=== PATIENT | male | born 1975 | race Caucasian/White ===

== ENCOUNTER → 2017-08-03 09:03 | Outpatient (CLI) | payer OTHER, SELFPAY ==
[2017-08-03 09:21] LABS: Add Manual Diff / Slide Review NO; Basophils Percent Auto 1.2 % (0-2); Eosinophils Percent Auto 3.7 % (2-4); Hematocrit 41.8 % (41-53); Lymphocytes Percent Auto 29.1 % (25-40); Mean Corpuscular HGB Conc 35.8 % (30-36); Mean Corpuscular Hemoglobin 30.4 PG (26-34); Mean Corpuscular Volume 84.9 fL (80-100); Monocytes Percent Auto 6.4 % (3-14); Neutrophils Absolute Auto 3900 /uL (3000-5900); Neutrophils Percent Auto 59.6 % (50-75); Red Blood Cell Count 4.92 X10^6/uL (4.5-5.9); White Blood Cell Count 6.6 X10^3/uL (4.5-11.0)
[2017-08-03 09:22] LABS: Platelet Count 1078 X10^3/uL (150-400)
[2017-08-03 09:33] LABS: Alanine Aminotransferase 29 IU/L (21-72); Albumin 4.6 g/dL (3.5-5.0); Albumin Globulin Ratio 1.6 (1.0-2.8); Alkaline Phosphatase 52 U/L (38-126); Aspartate Aminotransferase 26 IU/L (17-59); Bilirubin Total 0.8 mg/dL (0.2-1.3); Blood Urea Nitrogen 8 mg/dL (9-20); Calcium 9.4 mg/dL (8.4-10.2); Carbon Dioxide 31 mmol/L (22-32); Chloride 97 mmol/L (98-107); Estimated Glomerular Filt Rate > 60.0 mL/min (>60); Globulin 2.9 g/dL (1.7-4.1); Glucose 99 mg/dL (70-100); HEMOLYSIS 16 (0-50); Potassium 4.7 mmol/L (3.4-5.1); Sodium 138 mmol/L (137-145); Total Protein 7.5 g/dL (6.3-8.2)
[2017-08-03 09:39] LABS: Platelet Estimate Increased on smear
--- NOTE | 2017-08-03 09:43 | PC.NURSE ---
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
--- NOTE | 2017-08-03 11:05 | PC.NURSE ---
Critical value of plt 1078 noted. Showed Ketty results. She'd like pt seen sooner than August 11. Spoke with pt. He hasn't been taking his Hydrea for about a month. 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 He was made aware of critical value. His appt was changed to tomorrow 08/[address] Rome. Pt aware.
== END ==
PROVIDERS: Family Provider Nurse Practitioner Family; PCP Nurse Practitioner Family; Visit Provider Nurse Practitioner Gerontology
DX: D47.3 Essential (hemorrhagic) thrombocythemia (principal)
CPT/HCPCS: 36415; 80053; 85025

== ENCOUNTER → 2017-08-16 07:47 | Outpatient (CLI) | payer OTHER, SELFPAY ==
--- NOTE | 2017-08-16 | DI.US.S_ITS ---
PROCEDURE: US ABDOMEN LIMITED INDICATIONS: ESSENTIAL THROMBOCYTHEMIA TECHNIQUE: Real-time focused scanning was performed of the abdomen, with image documentation. COMPARISON: [facility], , ABDOMEN LIMITED, 01/14/2014, 11:02. FINDINGS: Spleen is enlarged measuring 15.4 cm in length with splenic volume 399 cc. Accessory spleen redemonstrated. IMPRESSION: 1. Splenomegaly redemonstrated decreased in size from prior examination with overall volume measuring 399 cc compared to 609 cc on prior exam Dictated by: Corwin Langford [facility] Interpreted: Duke Odonnell MD on 08/16/2017 at 9:06 Approved by: Duke Odonnell M.D. on 08/16/2017 at 11:06
[2017-08-16 08:56] LABS: Add Manual Diff / Slide Review NO; Basophils Percent Auto 0.7 % (0-2); Eosinophils Percent Auto 3.5 % (2-4); Hemoglobin 14.6 g/dL (13.5-17.5); Lymphocytes Percent Auto 25.9 % (25-40); Mean Corpuscular HGB Conc 34.8 % (30-36); Mean Corpuscular Hemoglobin 29.9 PG (26-34); Mean Corpuscular Volume 86.2 fL (80-100); Monocytes Percent Auto 6.6 % (3-14); Neutrophils Absolute Auto 4700 /uL (3000-5900); Neutrophils Percent Auto 63.3 % (50-75); Red Blood Cell Count 4.88 X10^6/uL (4.5-5.9); Red Cell Distribution Width 12.9 % (11.6-14.8); White Blood Cell Count 7.3 X10^3/uL (4.5-11.0)
[2017-08-16 09:22] LABS: Platelet Count 1059 X10^3/uL (150-400); RBC Morphology Normal Morphology
[2017-08-16 09:57] VITALS: PULSE 66; RESP 15; TEMP 37.1
== END ==
PROVIDERS: Nurse Practitioner Gerontology; Family Provider Nurse Practitioner Family; PCP Nurse Practitioner Family; Visit Provider Internal Medicine Hematology & Oncology
DX: D47.3 Essential (hemorrhagic) thrombocythemia (principal)
CPT/HCPCS: 36415; 76705; 85025

== ENCOUNTER → 2017-08-22 12:16 | Outpatient (CLI) | payer OTHER, SELFPAY ==
[2017-08-22 12:33] LABS: Add Manual Diff / Slide Review NO; Basophils Percent Auto 0.9 % (0-2); Eosinophils Percent Auto 2.4 % (2-4); Hematocrit 42.1 % (41-53); Hemoglobin 14.5 g/dL (13.5-17.5); Lymphocytes Percent Auto 25.4 % (25-40); Mean Corpuscular HGB Conc 34.4 % (30-36); Mean Corpuscular Hemoglobin 29.2 PG (26-34); Monocytes Percent Auto 7.3 % (3-14); Neutrophils Absolute Auto 5300 /uL (3000-5900); Red Blood Cell Count 4.95 X10^6/uL (4.5-5.9); Red Cell Distribution Width 12.8 % (11.6-14.8); White Blood Cell Count 8.2 X10^3/uL (4.5-11.0)
[2017-08-22 13:03] LABS: Platelet Count 903 X10^3/uL (150-400)
[2017-08-22 13:05] LABS: RBC Morphology Normal Morphology
--- NOTE | 2017-08-22 14:36 | PC.NURSE ---
Per Dr Rome's wishes, plt count was called into him. Platelets are [address] Rome requested lab results and pt chart to be put in his box for review/input tomorrow.
--- NOTE | 2017-08-24 16:50 | PC.NURSE ---
Anagrelide dosing increased to 3 tabs PO BID.1.5 mg and CBC in 1 week.Lab set up to be done at [facility].Triage will need to call for results on Tuesday to [facility] at [phone](lab not set up to auto fax).Pt notified -will do draw in am .New Rx faxed to [facility]
== END ==
PROVIDERS: Nurse Practitioner Gerontology; Family Provider Nurse Practitioner Family; PCP Nurse Practitioner Family; Visit Provider Internal Medicine Hematology & Oncology
DX: D47.3 Essential (hemorrhagic) thrombocythemia (principal)
CPT/HCPCS: 36415; 85025

== ENCOUNTER → 2017-08-29 08:30 | Oncology outpatient (ONC) | payer OTHER, SELFPAY ==
[2017-08-04 10:27] VITALS: BP 154/83; PULSE 61; RESP 15; TEMP 36.6; O2SAT 100
--- NOTE | 2017-08-04 10:56 | P.PNONC_ITS ---
Diagnosis (1) Essential thrombocythemia Diagnosis: 08/04/17 10:51 Long-standing history of essential thrombocythemia. Abnormal peripheral flow cytometry documented on 04/22/2006. Prior intermittent therapy with Hydrea. History of Present Illness History Of Present Illness: 08/04/17 10:52 Den returns today for follow-up. This gentleman was last seen in our clinic in early December,. At that time, he apparently interrupted his Hydrea therapy, to allow for conception of a 3rd child. Approximately 1 year ago, his gave to their 3rd son. They are now using routine control. Den acknowledges that he was previously on Hydrea, until approximately 1 month ago. He has not had is a platelet count procured in a very long time. He continues to have intermittent migraine headaches. He denies any dizziness or visual alteration. He denies any easy bruisability. He has recently completed 20 years in the [employer]. He has recently signed up for an additional 2 years of service. Home Medications and Allergies Home Medications Medication Instructions Recorded Confirmed Type hydroxyurea [Hydrea] 500 mg PO Q DAY #2 cap 10/08/16 Rx acetaminophen 325 mg PO Q4H PRN 08/04/17 08/04/17 History Allergies Allergy/AdvReac Type Severity Reaction Status Date / Time No Known Drug Allergies Allergy Verified 08/04/17 10:26 Exam Vital Signs: Vital Signs - 24 hr 08/04/17 10:27 Temperature 97.9 F Pulse Rate 61 Respiratory Rate 15 Blood Pressure 154/83 H Pulse Oximetry 100 Exam: Blood pressure 154/83. Temperature 97.9?. Pulse rate 61. O2 saturation on room air was 100%. Weight 192 lb. The oropharynx today was clear. No mucosal bleeding or petechiae were noted. There was no oozing from either nares. Both lungs were clear to auscultation and percussion. No pathologic lymphadenopathy was noted today in the neck, chin, supraclavicular or axillary areas. His heart sounds were fine. No perceived hepatosplenomegaly. No distal edema. No bruising was noted. Results - Labs A CBC from yesterday showed a white count of 6600 with 60% granulocytes. ANC 3900. Hemoglobin 15.0. MCV 85. Platelet count was 1,078,000. Impression I told Den today that he unequivocally needs to get back on an anti-platelet medication and that he also needs to keep his medical followups. He was warned about the potential for this disease to transform into acute leukemia, myelofibrosis or other more aggressive myeloproliferative disorders. My goal is to get his platelet count down to at least 400,000. He has some reservations about going back on Hydrea. I will therefore switch him over to Anagrelide 1 mg p.o. b.i.d.. I would like to recheck his CBC on August 16. We will also get a baseline splenic ultrasound that same day.
--- NOTE | 2017-08-16 10:08 | ONC.GEN.PN ---
Diagnosis (1) Essential thrombocythemia Diagnosis: 08/04/17 10:51 Long-standing history of essential thrombocythemia. Abnormal peripheral flow cytometry documented on 04/22/2006. Prior intermittent therapy with Hydrea. 08/16/17 10:08 Day #8 0f Anagrelide therapy History of Present Illness History Of Present Illness: 08/16/17 10:09 Den returns today for routine follow-up. He started his Anagrelide treatment last Tuesday. Thus far he has been tolerating the medication without difficulty. He had an ultrasound of his spleen earlier today. Those results are pending. He informs me today that he will be moving to [place] on September 05. Home Medications and Allergies Home Medications Medication Instructions Recorded Confirmed Type hydroxyurea [Hydrea] 500 mg PO Q DAY #2 cap 10/08/16 08/16/17 Rx acetaminophen 325 mg PO Q4H PRN 08/04/17 08/16/17 History Allergies Allergy/AdvReac Type Severity Reaction Status Date / Time No Known Drug Allergies Allergy Verified 08/04/17 10:26 Exam Exam: Blood pressure 134/89. Temperature 98.7?. Pulse rate 66. O2 saturation on room air was 99%. Weight 194 lb. No bleeding was seen today in either nares nor in the mouth. Both lungs were clear to auscultation and percussion. No petechiae were seen on his anterior shins. There was no dependent edema. No bruises were seen. Impression Den's platelet count remains quite elevated today at 1,059,000. I will therefore bump up his Anagrelide to 5 tablets daily; 3 in the morning and 2 in the evening. He will return on August 22 for a follow-up CBC
--- NOTE | 2017-08-30 15:10 | PC.NURSE ---
plt 876. Dr Rome would like pt to increase his Anagrelide to 4 tab in am and 3 tabs in pm. Pt also needs a lab recheck in 1 week. He is moving September 05. Message left on pt voicemail regarding dosage change and lab recheck. Asked pt for call back to schedule lab appt.
== END ==
PROVIDERS: Family Provider Nurse Practitioner Family; PCP Nurse Practitioner Family; Visit Provider Nurse Practitioner Gerontology
DX: D47.3 Essential (hemorrhagic) thrombocythemia (principal)
CPT/HCPCS: 99214; 99215